=== PATIENT | female | born 1985 | race Caucasian/White ===

== ENCOUNTER 2016-12-12 20:51 | Emergency (ER) | payer MEDICAID ==
[~2016-12-12] VITALS: Ht 154.9 cm; Wt 116.0 kg
[~2016-12-12 20:51] MED LIST: ALBU25IPRN NEB; AZIT250T74 PO; HYCO5UDC PO; LORTA5 PO; PROC5 PO; Z.0.NO CURRENT MEDS; Z.0.OXYGENDME NC
[2016-12-12] MEDS ORDERED: ALBUAER3 INH (21:14)
[2016-12-12 21:15] VITALS: BP 114/63; PULSE 89; RESP 16; TEMP 98.3; O2SAT 99
[2016-12-12] MEDS ORDERED: AZIT250T3 PO (21:22)
[2016-12-12] MEDS ORDERED: IBUP800T23 PO (21:22)
[2016-12-12] MEDS ORDERED: IPRA0.06 EACH NARE (21:22)
--- NOTE | 2016-12-12 21:24 | PD ---
HPI Chief Complaint: Cold / Flu Symptoms Time Seen by Provider: 21:15 Travel History International Travel<30 days: No Contact w/Intl Traveler<30days: No History of Present Illness HPI Patient is a 31-year-old female who presented to emergency department evaluation of nasal congestion, sore throat, sinus pressure, cough. She states her symptoms started yesterday, today they worsen and were accompanied by body aches. Patient denies any shortness of breath, chest pain, vomiting, diarrhea. She does endorse tobacco use as well as a history of asthma. She states that she uses her inhaler daily. She has no other complaints at this time. PFSH Past Medical History Asthma: Yes Anxiety: Yes Depression: Yes Cancer: No Cardiovascular Problems: No Endocrine: No Genitourinary: Yes Immune Disorder: No Psychiatric: Yes Reproductive: No Respiratory: Yes Past Surgical History Section: Yes (2) Gynecologic Surgery: Yes (2 x2) Social History Alcohol Use: No Tobacco Use: Yes (A FEW) Substance Use: No Allergies-Medications (Allergen,Severity, Reaction): Coded Allergies: No Known Allergies (Verified , 12/12/16) Reported Meds & Prescriptions Reported Meds & Active Scripts Active Review of Systems Except as stated in HPI: all other systems reviewed are Neg General / Constitutional: Positive: Chills, Other (fatigue), No: Fever HENT: Positive: Headaches, Sore Throat, Rhinitis, Congestion, No: Neck Stiffness, Neck Pain Cardiovascular: No: Chest Pain or Discomfort Respiratory: Positive: Cough, No: Shortness of Breath, Wheezing, Pleuritic Pain Gastrointestinal: No: Nausea, Vomiting, Diarrhea, Abdominal Pain Genitourinary: No: Dysuria Musculoskeletal: Positive: Myalgias Physical Exam Narrative GENERAL: Overweight, well-developed patient. Resting comfortably in no acute distress. SKIN: Warm and dry. HEAD: Normocephalic. ENT: Mucosa pink and moist. No erythema or exudates. No uvular edema. No uvular , palatal, or tonsillar deviation. Airway patent. Nasal turbinates appear normal without nasal blood, purulent drainage or septal hematoma. Cobblestone appearance to posterior pharynx EYES: No scleral icterus. No injection or drainage. NECK: Supple, trachea midline. No JVD or lymphadenopathy. CARDIOVASCULAR: Regular rate and rhythm without murmurs, gallops, or rubs. RESPIRATORY: Breath sounds equal bilaterally. No accessory muscle use. No wheezing, rhonchi, rales noted. GASTROINTESTINAL: Abdomen soft, non-tender, nondistended. MUSCULOSKELETAL: No cyanosis, or edema. BACK: Nontender without obvious deformity. No CVA tenderness. MDM Medical Decision Making Medical Screen Exam Complete: Yes Emergency Medical Condition: Yes Differential Diagnosis Bronchitis versus pneumonia versus viral upper respiratory infection versus sinusitis versus influenza versus other Narrative Course Patient's 31-year-old female who presented to emergency for evaluation of cough , congestion, sore throat, sinus pressure, body aches. Patient has not taken anything to alleviate her symptoms. Her vital signs are stable, she is afebrile well oxygenated on room air. His examination appears most consistent with a viral syndrome. She is encouraged to continue or actually begin symptom management. She was encouraged to obtain olin-ews-elbwlak nasal decongestant such as Sudafed or similar age and use as directed. She was encouraged to take ibuprofen as needed and as directed for body aches and pain. She was encouraged to maintain adequate fluid intake. She was encouraged to return to emergency department for any new or worsening symptoms or follow up with her primary doctor. She verbalized understanding of these instructions. Patient stable for discharge. Diagnosis Primary Impression: Viral URI Referrals: Primary Care Physician Patient Instructions: General Instructions, Upper Respiratory Infection (ED) Departure Forms: Tests/Procedures, Work Release Enter return to work date: Dec 15, 2016 Additional Instructions: Avoid tobacco use Use inhaler as needed and as directed Take medications as directed, continue symptom management Obtain [id number] Sudafed or similar medication and use as directed Return to emergency department for any new or worsening symptoms Med/Other Pt SpecificInfo: Prescription(s) given Scripts Ipratropium Nasal 0.06% Spray1 [place] EACH NARE QID #1 BOTTLE Ref 0 Prov:Dayami Osborne 12/12/16 Ibuprofen 800 Mg [id number] Mg PO Q6HR PRN (PAIN) 10 Days Ref 0 Prov:Dayami Osborne 12/12/16 Azithromycin 250 Mg [id number] Mg PO DIRECTED #6 TAB Ref 0 Take 2 tabs (500 mg) on day 1 then 1 tab daily x 4 days. Prov:Dayami Osborne 12/12/16 Disposition: 01 DISCHARGE HOME Condition: Stable Dayami Osborne Dec 12, 2016 21:24
== END 2016-12-12 21:30 | disposition home or self-care (01) ==
LOC: PHEFT 20:51
DX: J06.9 Acute upper respiratory infection, unspecified (principal); J45.909 Unspecified asthma, uncomplicated; Z72.0 Tobacco use
CPT/HCPCS: 99283